=== PATIENT | female | born 1945 | race Caucasian/White ===

== ENCOUNTER 2017-02-01 07:40 | Day surgery (SDC) | payer BC ==
--- NOTE | ~2017-02-01 | EGD ---
EGD REPORT [facility] [address] [address] NAME: KIM PEREIRA : [birth year] STATUS : [facility]#: [id number] AGE: 71 ADM/REG DATE : 02/01/17 MR#: [id number] REPORT SERV DATE: 02/01/17 DICTATED BY: SELENA BHATIA DATE: 02/01/17 REPORT STATUS : Draft [facility]: [facility] DATE: 02/01/17 [facility] Patient Name: Kim Pereira Date of : 1945 Attending MD: SELENA BHATIA MD Procedure Date No Time: 02/01/2017 Procedure: Colonoscopy Indications: Screening for colorectal malignant neoplasm Referring MD: ERIKA PUENTE Medicines: Monitored Anesthesia Care Complications: No immediate complications. Procedure: Pre-Anesthesia Assessment: - ASA Grade Assessment: II - A patient with mild systemic disease. After I obtained informed consent, the scope was passed under direct vision. Throughout the procedure, the patient's blood pressure, pulse, and oxygen saturations were monitored continuously. The PCF [id number] was introduced through the anus and advanced to the terminal ileum, with identification of the appendiceal orifice and IC valve. The colonoscopy was performed without difficulty. The patient tolerated the procedure well. The quality of the bowel preparation was good. Findings: The digital rectal exam was normal. Pertinent negatives include no palpable rectal lesions. The terminal ileum appeared normal. Hemorrhoids were found during retroflexion and were moderate. Impression: - The examined portion of the ileum was normal. - Hemorrhoids. Recommendation: - Patient has a contact number available for emergencies. The signs and symptoms of potential delayed complications were discussed with the patient. Return to normal activities tomorrow. Written discharge instructions were provided to the patient. - Regular diet. - Continue present medications. - Repeat colonoscopy is not recommended for screening purposes. - Return to GI clinic PRN. Procedure Code(s): --- Professional --- EGD REPORT [facility] [address] [place] [address] NAME: KIM PEREIRA : [birth year] STATUS : [facility]#: [id number] AGE: 71 ADM/REG DATE : 02/01/17 MR#: [id number] REPORT SERV DATE: 02/01/17 DICTATED BY: SELENA BHATIA DATE: 02/01/17 REPORT STATUS : Draft TRANSCRIBED BY: [employer] DATE: 02/01/17 [id number], Colonoscopy, flexible, proximal to splenic flexure; diagnostic, with or without collection of specimen(s) by brushing or washing, with or without colon decompression (separate procedure) Diagnosis Code(s): --- Professional --- K64.9, Unspecified hemorrhoids Z12.11, Encounter for screening for malignant neoplasm of colon CPT copyright 2013 [employer]. All rights reserved. The codes documented in this report are preliminary and upon network operations manager review may be revised to meet current compliance requirements. SELENA BHATIA MD 02/01/2017 9:52 AM This report has been signed electronically. Number of Addenda: 0 Note Initiated On: 02/01/2017 9:24 AM Scope Withdrawal Time 0 hours 8 minutes 58 seconds [address] [place] [address]
[~2017-02-01 07:40] MED LIST: ALEVE220 MG PO; STALEVO PO
== END 2017-02-01 23:59 | disposition home health service (06) ==
LOC: DMU 07:40
PROVIDERS: Internal Medicine Gastroenterology
PROC: 0DJD8ZZ Inspection of Lower Intestinal Tract, Via Natural or Artificial Opening Endoscopic (ICD-10-PCS; principal; 2017-02-01 09:30)
DX: Z12.11 Encounter for screening for malignant neoplasm of colon (principal); K64.9 Unspecified hemorrhoids; G20 Parkinson's disease; M19.90 Unspecified osteoarthritis, unspecified site; Z98.51 Tubal ligation status; Z98.41 Cataract extraction status, right eye; Z98.42 Cataract extraction status, left eye; Z96.1 Presence of intraocular lens